=== PATIENT | female | born 1950 | race Caucasian/White ===

== ENCOUNTER 2022-04-21 08:53 | Day surgery (SDC) | payer OTHER ==
[2022-04-19 09:49] LABS: COVID AG,FIA SOURCE NASOPHARYNGEAL
[~2022-04-21] VITALS: Ht 157.5 cm; Wt 72.7 kg
[~2022-04-21 08:53] MED LIST: ASPI-1444 PO; CHLO25TA3 PO; DICL75TA5 PO; DILT180C47 PO; METO50 PO; MIRT-92 PO; NITR0.4T52 SL; PANT40TA54 PO; SODIUM CHLORIDE 0.9% 1,000 ML ONE; VALS160T31 PO
[2022-04-21] MEDS ORDERED: PROPOFOL 1% 20 ML VIAL IVP ONE (08:54)
[2022-04-21] MEDS ORDERED: SODIUM CHLORIDE 0.9% 1,000 ML IV ONE (09:00)
[2022-04-21 11:37] LABS: GLUCOMETER DEV NAME(LOC) SDS.; GLUCOSE,POINT OF CARE 135 MG/DL (70-110)
== END 2022-04-21 13:50 | disposition home or self-care (01) ==
LOC: SURGERY 08:53
PROVIDERS: ATTEND Internal Medicine Gastroenterology
DX: K59.09 Other constipation (principal); K64.0 First degree hemorrhoids; M19.90 Unspecified osteoarthritis, unspecified site; F41.8 Other specified anxiety disorders; E78.5 Hyperlipidemia, unspecified; E11.9 Type 2 diabetes mellitus without complications; I10 Essential (primary) hypertension; E03.9 Hypothyroidism, unspecified; G47.00 Insomnia, unspecified; E66.9 Obesity, unspecified; Z79.899 Other long term (current) drug therapy; Z87.440 Personal history of urinary (tract) infections; Z98.890 Other specified postprocedural states; Z88.8 Allergy status to other drugs, medicaments and biological substances; Z82.49 Family history of ischemic heart disease and other diseases of the circulatory system
CPT/HCPCS: 45378; 82962; 87426; C9803; J2704; J7030